=== PATIENT | male | born 1960 | race Caucasian/White ===

== ENCOUNTER 2017-02-07 08:00 | Emergency (ER) | payer OTHER ==
--- NOTE | ~2017-02-07 | US85 ---
[facility] A Service [facility] RADIOLOGY TEXT RESULTS PATIENT: LETICIA HERNANDEZ LOCATION: SED : 62 UNIT #: [id number] AGE: [address]: Jonathan De Santiago MD SEX: M ORDER DR: [id number] [place] [id number] E MR#: [id number] Acc #: [id number] NAME: LETICIA HERNANDEZ : 1960 SEX: M STUDY DATE/TIME: 02/07/2017 10:31 UNIT: SED ROOM: STUDY DESCRIPTION: [facility] [employer] Attending Physician: Jonathan De Santiago M.D. Ordering Physician: Jonathan De Santiago M.D. Primary Care Physician: Primary Care Physician No MEDICAL IMAGING REPORT This report is preliminary unless electronic signature is present. EXAM Unilateral right lower extremity venous Doppler 02/07/2017 HISTORY Right lateral calf swelling and redness for 4 days. History of spider bite. PROCEDURE Whalen-scale imaging, color-Doppler flow imaging and Doppler waveform analysis. FINDINGS In the common, deep and superficial femoral and popliteal veins, there is normal color flow, compressibility, and where appropriate, respiratory phasicity and/or augmentation, as well as in the below-knee posterior tibial and peroneal veins and superficial saphenous vein. The below-knee anterior tibial vein cannot be identified. There is a noncompressible superficial gastrocnemius vein laterally without color flow, consistent with occlusive superficial venous thrombus. IMPRESSION 1. Negative for deep venous thrombus in the right lower extremity, and the superficial saphenous vein is also normal. 2. Positive for occlusive superficial venous thrombus in a right lateral gastrocnemius vein. Dictated by... Blas Segovia M.D. [facility] A Service [facility] RADIOLOGY TEXT RESULTS PATIENT: LETICIA HERNANDEZ LOCATION: SED : 62 UNIT #: [id number] AGE: [address]: Jonathan De Santiago MD SEX: M ORDER DR: THIS IS AN ELECTRONICALLY VERIFIED REPORT Blas Segovia M.D. at 02/08/2017 4:59 PM YOCASTA/kerri TD: 02/07/2017 12:42 JOB #: [id number] MEDICAL IMAGING REPORT Page 1 of 1
[~2017-02-07 08:00] MED LIST: FLAGYL PO; LEVAQUIN PO
== END 2017-02-07 11:21 | disposition home or self-care (01) ==
LOC: SED 08:00
DX: L03.115 Cellulitis of right lower limb (principal); I80.01 Phlebitis and thrombophlebitis of superficial vessels of right lower extremity; Z87.891 Personal history of nicotine dependence; Z88.8 Allergy status to other drugs, medicaments and biological substances; X58.XXXA Exposure to other specified factors, initial encounter; Y92.009 Unspecified place in unspecified non-institutional (private) residence as the place of occurrence of the external cause
CPT/HCPCS: 93971; 96372; 99283; J1885